=== PATIENT | male | born 1970 | race Caucasian/White ===

== ENCOUNTER 2023-01-21 05:20 | Observation (INO) ==
--- NOTE | 2023-01-05 13:08 | PAT Medication Instructions ---
Medication Instructions Date of Service January 05, 2023 Home Medications Collagen Peptides 1 dose PO DAILY L.acidophil-L.casei-B.bifid-B.longum-FOS 2 billion cell-50 mg capsule (Probiotic Blend) 1 cap PO DAILY fexofenadine 180 mg tablet (Alem Allergy) 180 mg PO DAILY PRN Allergy Sym ptoms STOP taking 2 weeks before surgery (or as soon as possible if surgery is within 2 weeks) Collagen Peptides 1 dose PO DAILY DO NOT take the morning of surgery L.acidophil-L.casei-B.bifid-B.longum-FOS 2 billion cell-50 mg capsule (Probiotic Blend) 1 cap PO DAILY fexofenadine 180 mg tablet (Alem Allergy) 180 mg PO DAILY PRN Allergy Symptoms Other Notes If you have any questions please call us at [phone] or [phone] or [phone] or [phone]
--- NOTE | 2023-01-12 13:41 | Anesthesiology Consultation ---
Date of Service January 12, 2023 Assessment & Plan (1) Encounter for pre-operative examination: - Pt denies any additional episodes of symptoms at PAT visit today. Case discussed in detail with Dr. Chacon who advised patient is acceptable to proceed with surgery at current status and does not need additional evaluation or testing from his standpoint. - [facility] 11/20/22: "...an hour ago he was getting out of the shower when he began to feel dizzy, faint, foggy headed, lightheaded and developed some left sided chest pain that seems worse with a deep breath. He was somewhat short of breath. No palpitations. He had to sit down to feel better. His symptoms passed in about 15 minutes...no leukocytosis or concerning anemia. There is a normal platelet count. D-dimer is negative. With a negative D-dimer and my low suspicion for PE, I will stop the work-up for this diagnosis...no significant electrolyte abnormality or renal failure. No concerning liver enzyme elevation. No evidence for pancreatitis. ECG shows a normal sinus rhythm, no ischemia. Cardiac enzyme testing x2 is not consistent with acute cardiac injury. Chest x- ray does not show mediastinal widening, pneumonia or pneumothorax per my review. Patient was given a liter of IV saline during his stay...patient is resting comfortably on the stretcher. His cardiac and pulmonary work-ups are unrevealing. The cause for his presentation is unclear but certainly may have been vasovagal. He had just stepped out of a hot shower. His symptoms have completely resolved and were present for about 15 minutes, they were improved with sitting down..." - Outpatient joint assessment: Patient is currently scheduled for inpatient pathway. If re-evaluated pending system levels during current pandemic/surgeon requests outpatient pathway, patient is acceptable candidate for outpatient joint program from anesthesia standpoint per discussion with Dr. Chacon pending surgeon's office assessment of pt motivation/support/completion of same day joint program preop requirements. Chart Review Chart Review: Acceptable Risk for Surgery and Patient seen in Pre Admission Testing Teaching & Discussion Pre-Anesthesia Teaching/Discussion Notes: Instructed NPO after midnight before surgery, except medications with 15 cc of water. Medication instructions provided according to the PAT guidelines. History Surgery Operation Date: 01/21/23 07:00 Proposed Procedures p Right Total Hip Arthroplasty - Oneil Mendoza MD Height/Weight Height: 5 ft 8 in Weight: 90.9 kg Allergies Allergy/AdvReac Type Severity Reaction Status Date / Time No Known Allergies Allergy Unknown Verified 01/02/23 08:31 Medications Home Medications Medication Instructions Recorded Confirmed Last Taken Collagen Peptides 1 dose PO DAILY 01/02/23 01/02/23 Unknown L.acidophil-L.casei-B.bifid-B.longum-FOS 1 cap PO DAILY 01/02/23 01/02/23 Unknown 2 billion cell-50 mg capsule (Probiotic Blend) fexofenadine 180 mg tablet 180 mg PO DAILY PRN Allergy 01/02/23 01/02/23 Unknown (Alem Allergy) Symptoms Past Medical History Medical History (Updated 01/12/23 @ 13:44 by Joyce Sexton PA-C) Anxiety Kidney cysts on right kidney--just monitoring Teeth grinding wears mouth guard, denies TMJ Patient denies h/o stroke, seizures, heart attack, heart failure, DM, HTN, blood clots or blood transfusions. Exercise / Class Metabolic Activity III < 4 Walking/Shop/Light housework (denies chest discomfort or shortness of breath with usual activities) Past Family History Family History Other No family history of adverse response to anesthesia Past Surgical History Surgical History History of colonoscopy History of wisdom tooth extraction Past Anesthesia History No Hx of Anesthesia Complications and No Family Hx of Anesthesia Complications History of PONV No Hx of PONV and Hx of Motion Sickness Social History Smoking Status: Never smoker Do You Dip or Chew Tobacco: No Hx Alcohol Use: Yes ("rarely") alcohol intake frequency: holidays/special occasions only Hx Substance Use: No substance use type: does not use Review of Systems Patient denies chest pain, shortness of breath, dyspnea on exertion, snoring, witnessed apneas, reflux, fever, chills, cough, wheezing, or palpitations. Physical Exam Vital Signs Vitals BP 158/95 P 73 TEMP 98.9 SP02 96% on RA RESP 18 Physical Full cervical extension range of motion without pain TMD 3.5 finger breadths Mallampati Score 3 Dentition: implant left upper back, denies chipped or loose teeth, caps/crowns, or bridges Lungs: normal respiratory effort. Good air movement, clear throughout to auscultation, no adventitious breath sounds Cardiac: regular rate and rhythm, no murmurs noted Carotid arteries: negative bruit bilat Lab Results Anesthesia Preop Results Results Anesthesia Widget: WBC 7.07 K/ul (4.8-10.8) 11/20/22 Hgb 14.9 g/dl (14.0-18.0) 11/20/22 Hct 43.4 % (42.0-52.0) 11/20/22 Plt 306 K/uL (130-400) 11/20/22 Na 140 mmol/L (136-145) 11/20/22 K 3.5 mmol/L (3.5-5.1) 11/20/22 Cl 107 mmol/L (98-107) 11/20/22 CO2 25 mmol/L (21-32) 11/20/22 BUN 12 mg/dl (6-23) 11/20/22 Creat 1.00 mg/dl (0.6-1.4) 11/20/22 Glucose Level 97 mg/dl (70-99(Fasting)) 11/20/22 PT 11.3 Seconds (9.0-12.0) 01/12/23 PTT 29.3 Seconds (21.0-31.0) 01/12/23 INR 1.0 (0.9-1.1) 01/12/23 Urine Color Yellow 01/12/23 Urine Appearance Clear (Clear) 01/12/23 Urine pH 6.5 (4.5-7.5) 01/12/23 Urine Specific [place] 1.008 (1.000-1.030) 01/12/23 Urine Protein Negative (Negative) 01/12/23 Urine Glucose (UA) Negative (Negative) 01/12/23 Urine Ketones Negative (Negative) 01/12/23 Urine Blood 1+ (Negative) H 01/12/23 Urine Nitrite Negative (Negative) 01/12/23 Urine Bilirubin Negative (Negative) 01/12/23 Urine Urobilinogen Negative (Negative) 01/12/23 Urine Leukocyte Esterase Negative (Negative) 01/12/23 Urine WBC (Auto) 0 /hpf (0-5) 01/12/23 Urine RBC (Auto) 0-4 /hpf (0-4) 01/12/23 Urine Hyaline Casts (Auto) 0 /lpf (0-5) 01/12/23 Urine Epithelial Cells (Auto) 0-5 /lpf (0-5) 01/12/23 Urine Bacteria (Auto) Negative (Negative) 01/12/23 Blood Type O Positive 01/12/23 Antibody Screen NEGATIVE 01/12/23 Testing Electrocardiogram Date: 11/20/22 NSR, rate 69 bpm Chest X-Ray Date: 11/20/22 *1view* No acute cardiopulmonary findings COVID-19 Risk Screen Screening Information COVID-19 Screen Date: 01/12/23 Exposure 21 Days Family/Household +COVID Last 21 Days: No Exposure 10 Days Any COVID Exposure Last 10 Days: No Symptoms Last 10 Days Experienced COVID Sx Last 10 Days: No + COVID 0-90 Days COVID + in Last 0-90 Days: No
[2023-01-21] MEDS ORDERED: LR 500ML BOLUS, THEN 15ML/HR IV SCH (06:00)
[2023-01-21] MEDS ORDERED: ceFAZolin 2000MG 2,000 MG/15 ML SYR IV SCH (06:00)
[2023-01-21] MEDS ORDERED: ROPIVACAINE 0.5% HCL/PF 150 MG, BUPIVACAINE 0.75% MPF 20 ML, EPINEPHrine 0.15 MG, Ketor... INFIL SCH (06:00)
[2023-01-21] MEDS ORDERED: LR 60ML/HR IV SCH (06:00)
[2023-01-21] MEDS ORDERED: TRANEXAMIC ACID 1,000 MG **IV Pre-op IV SCH (06:00)
--- NOTE | 2023-01-21 06:22 | History & Physical Bridge Note ---
Date of Service January 21, 2023 History & Physical Bridge Note I have examined the patient, reviewed the History & Physical and in the interval since the performance of the History & Physical I have noted the following changes of clinical significance: consent obtained /site verified.no changes noted
[2023-01-21] MEDS ORDERED: MIDAZOLAM HCL 1 MG/ML 2ML VIAL ONE (06:35)
[2023-01-21] MEDS ORDERED: PROPOFOL IV EMULSION 10 MG/ML 20 ML VIAL IV ONE ×3 (06:35→08:16)
[2023-01-21] MEDS ORDERED: ONDANSETRON INJ 2 MG/ML 2 ML VIAL ONE ×2 (06:35→07:46)
[2023-01-21] MEDS ORDERED: ORTHO JOINT ANESTHETIC ONE (06:41)
[2023-01-21] MEDS ORDERED: ePHEDrine sulfate 50 MG/ML AMP IV PRN (06:43)
[2023-01-21] MEDS ORDERED: fentaNYL citrate PF 100 MCG/2 ML VIAL IV PRN (06:43)
[2023-01-21] MEDS ORDERED: ONDANSETRON INJ 2 MG/ML 2 ML VIAL IV PRN ×2 (06:43→09:40)
[2023-01-21] MEDS ORDERED: ATROPINE SULFATE 0.1 MG/ML 10ML SYR IV PRN (06:43)
--- NOTE | 2023-01-21 06:43 | History & Physical Bridge Note ---
Date of Service January 21, 2023 History & Physical Bridge Note I have examined the patient, reviewed the History & Physical and in the interval since the performance of the History & Physical I have noted the following changes of clinical significance: COVID screen negative no changes noted
[2023-01-21] MEDS ORDERED: KETAMINE 50 MG/5 ML SYRINGE ONE (07:11)
[2023-01-21] MEDS ORDERED: fentaNYL citrate PF 100 MCG/2 ML VIAL ONE (07:42)
--- NOTE | 2023-01-21 08:20 | Post Operative Brief Note ---
Immediate Post Op Note v1 Date of Surgery January 21, 2023 Pre & Post Diagnosis Operation Date: 01/21/23 07:00 Pre-Op Diagnosis: Degenerative Joint Disease Hip Right Post-Op Diagnosis: Degenerative Joint Disease Hip Right I identified the patient and participated in the time-out.: Yes Procedure Operation Date: 01/21/23 07:00 Actual Procedures p Right Total Hip Arthroplasty(Right) - Oneil Mendoza MD Surgeon Oneil Mendoza MD Delivery Rep Yulisa/Latrell Estimated Blood Loss 100 Findings Consistent with Post-Op Diagnosis Severe DJD right hip Fluids See anesthesia report Complications None
--- NOTE | 2023-01-21 08:23 | Operative Report ---
Post Operative Report Pre & Post Diagnosis Operation Date: 01/21/23 07:00 Pre-Op Diagnosis: Degenerative Joint Disease Hip Right Post-Op Diagnosis: Degenerative Joint Disease Hip Right I identified the patient and participated in the time-out.: Yes Procedure Operation Date: 01/21/23 07:00 Actual Procedures p Right Total Hip Arthroplasty(Right) - Oneil Mendoza MD Surgeon Oneil Mendoza MD Clay Dry Press Operator Yulisa/Latrell Estimated Blood Loss 100 Findings Consistent with Post-Op Diagnosis Severe DJD right hip Fluids See anesthesia report Specimens Bone pathology Drains None Complications None Indications Severe disease right hip with leg length inequality short Description of Procedure Serrracquel medically cleared male with intractable right hip pain. Failed conservative management. Wants to proceed with surgical treatment understands risk and consequences. After patient brought identified site provide consent provide antibiotics for him to be given the right lower extremity was prepped and draped in his routine fashion. He was approximately 3 to 4 mm short on that side. Posterior approach to the hip was then made. Blunt dissection carried down to the fascia this was incised under direct vision retractors placed care taken to protect the sciatic nerve which was visualized but not explored. Short external rotators were identified and released. The capsule was then teed the hip dislocated. There was severe disease. The femoral neck was resected. Osteophytes resected along the margin of the acetabulum serial reaming carried up to a 50 to 50 cup impacted into appropriate anteversion and inclination. Whole limb interceded liner seated. Femur was then flexed internally rotated proximal femur prepared with a wire bound box machine helper canal finder lateralizing rasp and serial broaching up to size 2. The size 2 was excellent with a +5 head. The hip was stable in all planes. Leg lengths were very close. Trial implants were then removed the wound irrigated and then the permanent stem and head seated and the hip reduced and was stable in all planes leg lengths were excellent. The wound was then closed with #2 Vicryl for the capsule and short external rotators #2 Vicryl for the fascia and deep fat and 2-0 Vicryl for the subcutaneous layer. Skin was closed with valerie. Appropriate dressing applied and patient transferred recovery in satisfactory condition having tolerated the procedure well. EBL was 100 cc or less. Crystalloid per anesthesia bone pathology pending DVT prophylaxis per protocol. Summary of implants size 50 acetabular shell sector cup: Meter 20x6.5 screw 32x50 neutral liner to high offset Tri-Lock stem 32+5 ceramic head these were all DePuy. I attest to the content of the Intraoperative Record and any orders documented therein. Any exceptions are noted below.
--- NOTE | 2023-01-21 08:33 | Operative Report ---
Post Operative Report Pre & Post Diagnosis Operation Date: 01/21/23 07:00 Pre-Op Diagnosis: Degenerative Joint Disease Hip Right Post-Op Diagnosis: Degenerative Joint Disease Hip Right I identified the patient and participated in the time-out.: Yes Procedure Operation Date: 01/21/23 07:00 Actual Procedures p Right Total Hip Arthroplasty(Right) - Oneil Mendoza MD Surgeon RAQUEL Mendoza MD [employer] Yulisa/Latrell CISNEROS Estimated Blood Loss 100 Findings Consistent with Post-Op Diagnosis see operative report Specimens see operative report Drains none Complications none Disposition Accompanied Patient To Recovery: Yes Indications This 52 year old male presented to the office with complaints of persisting right hip pain. He had tried conservative care measures without improvement. He elected to proceed with surgical intervention after being educated about potential risks and outcomes. Preoperative imaging was obtained. Description of Procedure The patient was administered a spinal anesthetic and then taken to the operating room where he was given sedation. He was prepped and draped in the usual sterile fashion. Please see Dr. Mendoza's operative report for specifics of the procedure. I was present for the entire case from initial patient positioning through final wound closure. Assistance was provided in tissue retraction, hemostasis, trial implant placement, final implant placement, and final wound closure. The patient was taken to the recovery room in satisfactory condition. I attest to the content of the Intraoperative Record and any orders documented therein. Any exceptions are noted below.
--- NOTE | 2023-01-21 08:44 | Orthopedic Progress Note ---
Date of Service January 21, 2023 Assessment & Plan (1) Status post right hip replacement: Plan: Continue with care pathway. Subjective Postop check status post right total placement resting comfortably. Denies any chest pain shortness of breath fever chills nausea vomiting or headache. Wound dressing clean dry and intact. X-rays pending. Physical Exam Physical Exam: Neurovascular check limited by block. Results & Data Vital Signs (Past 12 Hours) Vital Signs Temp Pulse Pulse Resp BP Pulse Ox O2 Del Method 01/21/23 08:40 82 14 126/77 98 Room Air 01/21/23 08:30 36.0 C L 88 12 125/73 98 Oxymask 01/21/23 06:16 69 20 117/94 98 Room Air 01/21/23 05:42 36.7 C 73 20 170/111 H 98 Room Air O2 Flow Rate 01/21/23 08:40 01/21/23 08:30 6 01/21/23 06:16 01/21/23 05:42
--- NOTE | 2023-01-21 08:47 | Discharge Summary ---
Date of Service January 21, 2023 Admission HPI Per Admitting Provider Severe right hip pain x-rays reveal end-stage disease with large subchondral cyst formation on both the acetabulum and femur. Principal Diagnosis Severe osteoarthritis right hip. Discharge Exam Neurovascular check limited by block. Discharge Data Allergies Allergy/AdvReac Type Severity Reaction Status Date / Time No Known Allergies Allergy Unknown Verified 01/21/23 05:39 Consultations None Procedures Performed Operation Date: 01/21/23 07:00 Actual Procedures p Right Total Hip Arthroplasty(Right) - Oneil Mendoza MD Hospital Course (1) Status post right hip replacement: Continue with care pathway. Total Time Total Time Spent Total Time Spent (In Minutes): 15 minutes Discharge Plan Discharge Items Reason For Visit: DJD Hip Right Follow-Up/Referrals: Norma Mccray MD [Primary Care Provider] - Add Attending Provider Instructions: DIET: * Resume previous diet. MEDICATIONS: * Please take your prescriptions as instructed at your pre-op appointment and/or see medication discharge instructions listed above. * If concerns develop, call your physician's office at . SPECIAL CARE INSTRUCTIONS: * Ice/Elevate as instructed. * Keep dressing clean, dry, intact. * Your surgical extremity may be discolored due to prepping agents used on the skin. A bluish-green tint is a normal variant and should not cause alarm. Call your doctor at [phone] if: * Temperature above 101 degrees * Pain not relieved by pain medicine ordered * There is increased drainage or redness from any incision * You have any unanswered questions, problems or concerns. FOLLOW UP VISIT: * If not already scheduled, please call the office at to schedule a follow-up appointment. Pending Studies at Discharge: Yes (Bone pathology) Prescriptions: No Action fexofenadine [Alem Allergy] 180 mg Tablet 180 mg PO DAILY PRN (Reason: Allergy Symptoms) Probiotic Blend 2 billion cell-50 mg Capsule 1 cap PO DAILY Rx Instructions: give with meal/snack Collagen Peptides 1 dose PO DAILY Admission Data Attending Provider: Oneil Mendoza Primary Care Provider: Norma Mccray
--- NOTE | 2023-01-21 09:00 | XRay Report ---
AP PELVIS History: Right total hip arthroplasty. Degenerative arthritis. Postop. FINDINGS: The patient is status post a right total hip arthroplasty. The hardware is intact. No fract ure or dislocation. Skin valerie are in place. IMPRESSION: Right total hip arthroplasty. No evidence for hardware complication ACT 112: Negative or not required by law. Electronically signed by: Sathya Larry M.D. 01/21/2023 8:58 AM
[2023-01-21] MEDS ORDERED: oxyCODONE HCL IR 5 MG TAB (IMMEDIATE RELEASE) PO PRN (09:40)
[2023-01-21] MEDS ORDERED: TAMSULOSIN HCL 0.4 MG CAP PO PRN (09:40)
[2023-01-21] MEDS ORDERED: METOCLOPRAMIDE HCL INJ 5 MG/ML 2 ML VIAL IV PRN (09:40)
[2023-01-21] MEDS ORDERED: HYDROmorphone INJ 0.5 MG/0.5 ML SYR IV PRN (09:40)
[2023-01-21] MEDS ORDERED: diphenhydrAMINE 50 MG/ML VIAL IV PRN (09:40)
[2023-01-21] MEDS ORDERED: MAGNESIUM HYDROXIDE SUSP 30 ML UDC PO PRN (09:40)
[2023-01-21] MEDS ORDERED: NALOXONE HCL 0.4 MG/1 ML VIAL/CARP IV PRN (09:40)
[2023-01-21] MEDS ORDERED: SODIUM CHLORIDE 0.9% 1000ML 1,000 ML IV SCH (09:40)
[2023-01-21] MEDS ORDERED: ALUMINUM/MAGNESIUM SUSP 30 ML UDC PO PRN (09:40)
[2023-01-21] MEDS ORDERED: bisacodyL 10 MG SUPP PR PRN (09:40)
[2023-01-21] MEDS: MULTIVITAMIN TAB PO SCH (10:23)
[2023-01-21] MEDS: DOCUSATE SODIUM 100 MG CAP PO SCH ×2 (10:23→20:01)
--- NOTE | 2023-01-21 11:02 | Anesthesiology Progress Note ---
Date of Service January 21, 2023 Anesthesia Post Procedure Vital Signs Vital Signs: Temp Pulse Pulse Resp BP Pulse Ox O2 Del Method 01/21/23 10:38 36.5 C 67 16 144/94 H 100 Room Air 01/21/23 10:04 62 14 133/80 100 Room Air 01/21/23 09:36 36.5 C 58 L 16 114/74 99 Room Air 01/21/23 09:20 63 16 119/66 99 Room Air 01/21/23 09:10 36.4 C L 53 L 12 108/76 100 Room Air 01/21/23 09:00 57 L 14 106/69 96 Room Air 01/21/23 08:50 66 16 119/82 98 Room Air 01/21/23 08:40 82 14 126/77 98 Room Air 01/21/23 08:30 36.0 C L 88 12 125/73 98 Oxymask 01/21/23 06:16 69 20 117/94 98 Room Air 01/21/23 05:42 36.7 C 73 20 170/111 H 98 Room Air O2 Flow Rate 01/21/23 10:38 01/21/23 10:04 01/21/23 09:36 01/21/23 09:20 01/21/23 09:10 01/21/23 09:00 01/21/23 08:50 01/21/23 08:40 01/21/23 08:30 6 01/21/23 06:16 01/21/23 05:42 Pain Intensity Right Hip: Pain Intensity: 4 Transfer of Care Handoff Completed per policy Notes Mental Status: alert / awake / arousable and participated in evaluation Patient Amnestic to Procedure: Yes Nausea / Vomiting: adequately controlled Pain: adequately controlled Airway Patency, RR, SpO2: stable & adequate BP & HR: stable & adequate Hydration State: stable & adequate Neuraxial Anesthesia: was administered and sensory block is resolving Anesthetic Complications: no major complications apparent and Pt Satisfied with anesthetic care
[2023-01-21] MEDS: KETOROLAC 30 MG/ML VIAL IV SCH ×3 (11:59→23:03)
[2023-01-21] MEDS: ACETAMINOPHEN 500 MG TAB PO SCH ×2 (13:27→21:29)
[2023-01-21] MEDS ORDERED: ORTHO WARFARIN NOMOGRAM SCH (14:00)
[2023-01-21] MEDS ORDERED: TRANEXAMIC ACID / 0.7% NACL 1,000 MG/100 ML BAG IV SCH (15:00)
[2023-01-21] MEDS: ceFAZolin 2000MG 2,000 MG/15 ML SYR IV SCH ×2 (15:18→23:03)
[2023-01-21] MEDS ORDERED: WARFARIN SOD 5 MG TAB PO SCH (16:00)
[2023-01-21] MEDS: ASCORBIC ACID 500 MG TAB PO SCH (17:05)
[2023-01-21] MEDS: FERROUS GLUCONATE 324 MG TAB PO SCH (17:06)
[2023-01-21] MEDS ORDERED: SENNA 8.6 MG TAB PO SCH (21:00)
[2023-01-22] MEDS: KETOROLAC 30 MG/ML VIAL IV SCH (05:51)
[2023-01-22] MEDS: ACETAMINOPHEN 500 MG TAB PO SCH (05:51)
--- NOTE | 2023-01-22 06:16 | Orthopedic Progress Note ---
Date of Service January 22, 2023 Assessment & Plan (1) Status post hip replacement: Plan This point in time I will have encouraged him to get up and move out of bed. Prior to getting up and moving he should move his hip and get his muscles used to moving again. Advised him with some tough love and coaching he needs to get up and move around. Based on his age he should be moving through this easily. He needs to stop getting so anxious with his movements. Overall things look denice te good. We will check his labs however there is no indication that he is having any issues with bleeding that would cause any type of orthostatic issues. He has had no reaction to medication. It is clearly when he gets up and gets anxious. Advised him that he needs to try to work through this and prepare himself to get up out of bed. We will give him Tylenol [id number]. As needed Toradol. Try to avoid narcotics. Home later today if he does well with PT and OT. Admission and Anticipated Discharge Date Admission Date: January 21, 2023 Subjective Continues to have anxiety when he gets up. He states the pain makes him feel nauseated he gets a little sweaty. His vital signs are stable. His pulse is in the 60s. He has no drainage on his dressing. He notes that he gets this way with moving with pain. He had no issues with any of the pain medications. Physical Exam Physical Exam: Physical exam today reveals the hip to be located neurovascular check from the sciatic nerve is normal. Can easily move his hip to 5060 degrees of flexion with no issue. Has good quad tone. Calves are nontender. Wound dressing clean and dry. Results & Data Vital Signs (Past 12 Hours) Vital Signs Temp Pulse Resp BP Pulse Ox O2 Del Method 01/22/23 05:55 69 18 96/53 L 100 Room Air 01/22/23 05:48 37.1 C 73 17 120/72 98 Room Air 01/22/23 02:53 36.9 C 75 18 120/72 99 Room Air 01/21/23 23:01 37.1 C 70 18 124/57 L 98 Room Air 01/21/23 19:06 36.8 C 81 18 129/76 95 Room Air
[2023-01-22 06:18] LABS: Basophils # (auto) 0.03 K/uL (0-0.2); Basophils % (auto) 0.3 %; Eosinophils # (auto) 0.01 K/uL (0-0.50); Eosinophils % (auto) 0.1 %; Hematocrit (blood only) 34.2 % (42.0-52.0); Hemoglobin 11.8 g/dl (14.0-18.0); Immature Granulocytes # (auto) 0.06 K/uL (0.01-0.20); Immature Granulocytes % (auto) 0.5 %; Lymphocytes # (auto) 1.34 K/uL (1.2-3.4); Lymphocytes % (auto) 11.6 %; Mean Corpuscular Hgb Conc 34.5 g/dL (32.0-36.0); Mean Platelet Volume 10.5 fL (9.4-12.4); Monocytes # (auto) 1.25 K/uL (0.11-0.59); Monocytes % (auto) 10.8 %; Neutrophils # (auto) 8.85 K/uL (1.40-6.50); Neutrophils % (auto) 76.7 %; Platelet Count 260 K/uL (130-400); RDW Coefficient of Variation 12.7 % (11.5-14.5); RDW Standard Deviation 38.9 fL (36.4-46.3); Red Blood Count 4.07 M/uL (4.70-6.10); White Blood Count 11.54 K/ul (4.8-10.8)
[2023-01-22 06:30] LABS: BUN Creatinine Ratio 13.6 (10-20); Calcium 8.3 mg/dl (8.6-10.3); Creatinine Clr Calc Pharmacy 91.6 ml/min; Est GFR (Non-African American) 83.7 ml/min; Potassium 4.2 mmol/L (3.5-5.1)
[2023-01-22 06:40] LABS: INR 1.2 (0.9-1.1); Prothrombin Time 13.4 Seconds (9.0-12.0)
--- NOTE | 2023-01-22 07:54 | Orthopedic Progress Note ---
Date of Service January 22, 2023 Assessment & Plan (1) Status post right hip replacement: Plan: The patient was educated regarding today's findings. Conservative care measures were discussed. Postsurgical dressing was applied by me. Gauze pads, ABD pads, and multiple directions of Medipore tape were applied. Patient tolerated this well. Start Coumadin 4 mg daily. Have his blood rechecked on Thursday. Start home health PT. Prescriptions have already been written. Follow-up in the office in 2 weeks for staple removal. Prescriptions were sent to his pharmacy. He was encouraged to continue using his walker for ambulation. Continue the MARIPOSA hose. Written discharge instructions were provided. Admission and Anticipated Discharge Date Admission Date: January 21, 2023 Subjective This 52-year-old male is seen today in his room. He is 1 day status post right total hip arthroplasty. He states he is doing well overall, but continues to have some anxiety about getting up. He was nauseated earlier but this has resolved. He initially thought his right leg was shorter than the left yesterday after surgery, but now states that he thinks it was just numb. He thinks his leg lengths are equal. He denies any chest pain, shortness of breath, nausea, vomiting, or abdominal pain. No headache. No syncopal episodes. He states he is previous groin pain has resolved, and he is now able to put his foot flat on the floor without issue. Review of Systems Review of Systems: Unchanged from yesterday. Physical Exam Physical Exam: General: Well-developed, well-nourished, middle-aged male, in no acute distress. Sitting on the chair. Alert and oriented. Skin: Warm and dry with good turgor. No rashes. No ecchymosis or erythema. He has a postsurgical dressing in place on the right hip. Upon removal, there is scant dried blood on the inner dressings. No active bleeding. [place] are intact. Wound edges are well approximated. No erythema or warmth. Musculoskeletal: The patient has intact motor function of his right hip, knee, and ankle. Plantarflexion and dorsiflexion are clearly intact with strength of 5/5 for resisted motion. Supple internal and external rotation as well as flexion of the hip. Neurologic: Gross sensation is intact across the right leg by soft touch. Peripheral pulses are 2+. Results & Data Vital Signs (Past 12 Hours) Vital Signs Temp Pulse Resp BP Pulse Ox O2 Del Method 01/22/23 05:55 69 18 96/53 L 100 Room Air 01/22/23 05:48 37.1 C 73 17 120/72 98 Room Air 01/22/23 02:53 36.9 C 75 18 120/72 99 Room Air 01/21/23 23:01 37.1 C 70 18 124/57 L 98 Room Air Laboratory Results CBC obtained today shows a white count of 11.5. H&H of 11.8 and 34.2. Normal platelets. INR of 1.2. PRP is unremarkable. Glucose is 114.
[2023-01-22] MEDS ORDERED: dexAMETHasone 10 MG in SYRINGE 0 ML IV SCH (08:00)
[2023-01-22] MEDS: DOCUSATE SODIUM 100 MG CAP PO SCH (08:28)
[2023-01-22] MEDS: ASCORBIC ACID 500 MG TAB PO SCH (08:28)
[2023-01-22] MEDS: MULTIVITAMIN TAB PO SCH (08:28)
[2023-01-22] MEDS: FERROUS GLUCONATE 324 MG TAB PO SCH (08:28)
== END 2023-01-22 10:14 | disposition home health service (06) ==
LOC: ASU 05:20 → 3E 05:20
DX: M16.11 Unilateral primary osteoarthritis, right hip